=== PATIENT | female | born 1990 | race Caucasian/White ===

== ENCOUNTER 2017-07-24 22:26 | Emergency (ER) | payer BC, OTHER ==
[2017-07-24 22:32] VITALS: BP 115/66; PULSE 90; TEMP 97.5; BMI 17.3
[2017-07-25] MEDS ORDERED: METOCLOPRAMIDE HCL INJECTION 10 MG/2 ML VIAL IVPUSH ONE (01:06)
[2017-07-25] MEDS ORDERED: ACETAMINOPHEN 500 MG TABLET (FP) PO ONE (01:06)
[2017-07-25] MEDS ORDERED: SODIUM CHLORIDE 0.9% 1000 ML INFUS.BAG IV ONE (01:06)
[2017-07-25] MEDS ORDERED: METOCLOPRAMIDE HCL INJECTION 10 MG/2 ML VIAL ONE (01:10)
[2017-07-25] MEDS ORDERED: ACETAMINOPHEN 325 MG TABLET (FP) ONE (01:14)
--- NOTE | 2017-07-25 01:14 | PDOC ---
History of Present Illness - General Chief Complaint: Pain Stated Complaint: CHEST PAIN Time Seen by Provider: 07/24/17 23:37 History Source: Patient Exam Limitations: No Limitations - History of Present Illness Initial Comments: This is a 26 YOF with h/o migraines who presents c/o left-sided headache since 6 pm today. She notes pinching pain, numbness, and tingling to the entire left face radiating to the left scalp and to the left neck which has been constant 10 /10 pain since the onset. She took Advil with little relief. 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 She has never had symptoms like this before and states this feels very different from her normal migraines. She denies any rash, recent cough, recent sore throat, shortness of breath, or other symptoms. Past History - Past Medical History Allergies/Adverse Reactions: Allergies Allergy/AdvReac Type Severity Reaction Status Date / Time No Known Allergies Allergy Verified 07/24/17 22:32 Home Medications: Ambulatory Orders NK [No Known Home Medication] 07/25/17 COPD: No Other medical history: migrains - Suicide/Smoking/Psychosocial Hx Smoking History: Never smoked Hx Alcohol Use: Yes (SOCIAL) Drug/Substance Use Hx: No Substance Use Type: None Review of Systems - Review of Systems Constitutional: No: Chills, Fever, Unexplained wgt Loss HEENTM: No: Nose Congestion, Throat Pain Respiratory: No: Cough, Shortness of Breath Cardiac (ROS): No: Chest Pain, Palpitations ABD/GI: Yes: Vomiting (x1). No: Constipated, Diarrhea : No: Burning, Dysuria Musculoskeletal: No: Back Pain, Neck Pain Integumentary: No: Bruising, Rash Neurological: Yes: Headache, Numbness (left face), Tingling (left face), Dizziness (mild). No: Weakness Endocrine: No: Unexplained Weight Gain, Unexplained Weight Loss *Physical Exam - Vital Signs Last Vital Signs Temp Pulse Resp BP Pulse Ox 97.5 F L 90 18 115/66 99 07/24/17 22:28 07/24/17 22:28 07/24/17 22:28 07/24/17 22:28 07/24/17 22:28 - Physical Exam General Appearance: Yes: Nourished, Appropriately Dressed, Other (well- appearing British-speaking female answering questions appropriately, large vesicular lesion right lip with topical cream). No: Apparent Distress HEENT: positive: EOMI, ALICIA, Normal Voice, TMs Normal, Other (decreased hearing on the left grossly, EACs clear bilaterally). negative: Scleral Icterus (R), Scleral Icterus (L), Muffled/Hoarse voice, Nasal Congestion, TM Bulging, TM Dull , TM Erythema Neck: positive: Trachea midline, Supple. negative: Tender, Rigid Respiratory/Chest: positive: Lungs Clear, Normal Breath Sounds. negative: Respiratory Distress, Crackles, Rhonchi, Stridor, Wheezing Cardiovascular: positive: Regular Rhythm, Regular Rate. negative: Murmur Gastrointestinal/Abdominal: positive: Normal Bowel Sounds, Soft. negative: Tender, Organomegaly, Pulsatile Mass, Guarding Musculoskeletal: positive: Normal Inspection. negative: Decreased Range of Motion, Vertebral Tenderness Extremity: positive: Normal Capillary Refill, Normal Inspection, Normal Range of Motion. negative: Tender, Cyanosis Integumentary: positive: Normal Color, Dry, Warm, Other (vesicular lesion to right lip but otherwise no rash, no lesions, no scabs, no drainage). negative: Erythema, Rash, Bruising Neurologic: positive: service technician copier II-XII NML intact (except subjective decreased sensation entire right face), Fully Oriented, Alert, Normal Mood/Affect, Normal Response, Motor Strength 5/5 Medical Decision Making - Medical Decision Making 26 YOF with h/o migraines p/w left facial pain, numbness, tingling, decr hearing and vision on the left. On exam she has large vesicular lesion to RIGHT lip but otherwise no rash, VS wnl, subj decr sensation left face. DDX IBNLT atypical migraine, early shingles, trigeminal neuralgia, tension headache, ICH, cluster headache, etc. Very unlikely ICH as the patient has no mechanism for injury, no past medical hx other than migraine. No objective focal deficits on exam, gait is normal. Ordered is urine hCG, reglan, Tylenol, IVF. 07/25/17 02:20 Patient states pain has resolved after Tylenol, Reglan, IVF. Urine hCG is negative. The patient wishes to go home and requests work note for tomorrow. Return precautions are discussed and she will take OTC pain/vertigo medications prn. *DC/Admit/Observation/Transfer Diagnosis at time of Disposition: Migraine headache Qualifiers: Migraine type: unspecified Status migrainosus presence: without status migrainosus Intractability: not intractable Qualified Code(s): G43.909 - Migraine, unspecified, not intractable, without status migrainosus - Discharge Dispostion Disposition: HOME - Referrals Referrals: Feli Kramer [Primary Care Provider] - - Patient Instructions Additional Instructions: [place] visto en la tiana emergancia por dolor de terrell. Hicemos un prueba de la orina y no esta embarazado. Se trey unos medicamentos para nausea y el dolor ( Tylenol y Reglan) y tambieno pusimos el miriam, y ahora sánchez dolor es mejor. Por favor tanmay Tylenol y Motrin por el dolor de terrell, y tanmay meclizine por los mareos. Haz katia samuel con sánchez doctor primario muy temprano, o siempre puede regresar a la tiana emergencia por sintomas nuevas o peoras vance fiebre, dolor que no puede controlar con medicamentos, vomitar, o otras sintomas. - Post Discharge Activity Forms/Work/School Notes: Back to Work
--- NOTE | 2017-07-25 02:37 | PDOC ---
Attending Attestation - Resident Resident Name: Yolanda Werner - ED Attending Attestation I have performed the following: I have examined & evaluated the patient, The case was reviewed & discussed with the resident, I agree w/resident's findings & plan, Exceptions are as noted - HPI HPI: 07/25/17 02:31 26 F with h/o migraines presents to ER with 1 day of L sided headache. Pt states that her typical headaches are mid-frontal. This headache was slightly different in that it was mainly on the left side of her head. She denies N/V. Denies neck stiffness. Denies F/C. Denies worst headache of life, denies thunderclap. Pt states that the pain radiates into her L face. In ER, pt received tylenol and reglan with complete resolution of her headache. At time of interview, pt is completely asymptomatic. Denies HARP. Denies N/V. Denies hearing or vision changes. No weakness/numbness/tingling in any extremities. Pt is followed by neurologist and has had MRI in the past that she states was normal. - Physicial Exam PE: 07/25/17 02:37 "GENERAL: Awake, alert, and fully oriented, in no acute distress HEAD: No signs of trauma EYES: PERRLA, EOMI, sclera anicteric, conjunctiva clear ENT: Auricles normal inspection, hearing grossly normal, nares patent, oropharynx clear without exudates. Moist mucosa NECK: Nontender, no stepoffs, Normal ROM, supple, no lymphadenopathy, JVD, or masses LUNGS: Breath sounds equal, clear to auscultation bilaterally. No wheezes, and no crackles HEART: Regular rate and rhythm, normal S1 and S2, no murmurs, rubs or gallops ABDOMEN: Soft, nontender, normoactive bowel sounds. No guarding, no rebound. No masses EXTREMITIES: Normal range of motion, no edema. No clubbing or cyanosis. No cords, erythema, or tenderness NEUROLOGICAL: Cranial nerves II through XII intact. 5/5 strength and sensation in all extremities, Normal speech, normal gait SKIN: Warm, Dry, normal turgor, no rashes or lesions noted. " - Medical Decision Making 07/25/17 02:37 26 F with L sided headache, now resolved s/p tylenol and reglan. Neuro exam completely non-focal. Likely atypical migraine given h/o migraine headaches. - F/u neurology
--- NOTE | 2017-07-29 12:59 | EKG ---
Test Reason : Blood Pressure : / mmHG Vent. Rate : 085 BPM Atrial Rate : 085 BPM P-R Int : 150 ms QRS Dur : 070 ms QT Int : 364 ms P-R-T Axes : 053 064 054 degrees QTc Int : 433 ms NORMAL SINUS RHYTHM NORMAL ECG NO PREVIOUS ECGS AVAILABLE Confirmed by JENNIFER MORRISON MD ([id number]) on 07/29/2017 12:59:27 PM Referred By: Confirmed By:JENNIFER MORRISON MD
== END 2017-07-25 02:41 | disposition home or self-care (01) ==
LOC: JER 22:26
PROC: 3E033GC Introduction of Other Therapeutic Substance into Peripheral Vein, Percutaneous Approach (ICD-10-PCS; principal; 2017-07-24)
DX: G43.909 Migraine, unspecified, not intractable, without status migrainosus (principal)
CPT/HCPCS: 84703; 93005; 93010; 99281-25

== ENCOUNTER 2019-07-05 12:15 | Emergency (ER) | payer OTHER ==
[2019-07-05 12:23] VITALS: BMI 18.7
[2019-07-05] MEDS ORDERED: SODIUM CHLORIDE 1,000 ML IV STA (12:24)
[2019-07-05] MEDS ORDERED: ACETAMINOPHEN 1000 MG/100 ML VIAL (NON FORMULARY) IVPB ONE (12:24)
--- NOTE | 2019-07-05 12:24 | PDOC ---
Rapid Medical Evaluation Time Seen by Provider: 07/05/19 12:18 Medical Evaluation: Allergies Allergy/AdvReac Type Severity Reaction Status Date / Time No Known Allergies Allergy Verified 07/24/17 22:32 07/05/19 12:19 CC: Global HARP 04/08 with photophobia and vomiting- c/w usual migraine pattern. LMP-04/18. . 11wks by dates. +lower abdominal pain. denies vaginal bleeding/ discharge. PE: No neuro findings. Abd benign. Orders: labs, urine Patient will proceed to ER for continued evaluation. 07/05/19 12:23 07/05/19 12:24 Discharge Disposition - Diagnosis Migraine - Referrals - Patient Instructions - Post Discharge Activity
[2019-07-05] MEDS ORDERED: METOCLOPRAMIDE HCL INJECTION 10 MG/2 ML VIAL IVPB ONE (12:47)
--- NOTE | 2019-07-05 12:47 | PDOC ---
History of Present Illness - General Chief Complaint: Pain Stated Complaint: 11WKS/ HEADACHES Time Seen by Provider: 07/05/19 12:18 History Source: Patient Exam Limitations: No Limitations Past History - Travel Traveled outside of the country in the last 30 days: No Close contact w/someone who was outside of country & ill: No - Past Medical History Allergies/Adverse Reactions: Allergies Allergy/AdvReac Type Severity Reaction Status Date / Time No Known Allergies Allergy Verified 07/05/19 12:23 Home Medications: Ambulatory Orders Metoclopramide HCl [Reglan -] 10 mg PO TID PRN #10 tablet 07/05/19 95/Iron Fum/Folic/Dha [ + Dha Combo Pack] 1 each PO DAILY 07/05 COPD: No - Psycho Social/Smoking Cessation Hx Smoking History: Never smoked Have you smoked in the past 12 months: No Information on smoking cessation initiated: No Hx Alcohol Use: No Drug/Substance Use Hx: No Substance Use Type: None Review of Systems - Review of Systems Able to Perform ROS?: Yes Comments:: 07/05/19 15:12 CONSTITUTIONAL: Absent: fever, chills, diaphoresis, generalized weakness, malaise, loss of appetite HEENT: Absent: rhinorrhea, nasal congestion, throat pain, throat swelling, difficulty swallowing, mouth swelling, ear pain, eye pain, visual Changes CARDIOVASCULAR: Absent: chest pain, loss of consciousness, palpitations, irregular heart rate, peripheral edema RESPIRATORY: Absent: cough, shortness of breath, dyspnea with exertion, orthopnea, wheezing, stridor, hemoptysis GASTROINTESTINAL: Absent: abdominal pain, abdominal distension, nausea, vomiting, diarrhea, constipation, melena, hematochezia GENITOURINARY: Absent: dysuria, frequency, urgency, hesitancy, hematuria, flank pain, genital pain MUSCULOSKELETAL: Absent: myalgia, arthralgia, joint swelling SKIN: Absent: rash, itching, pallor HEMATOLOGIC/IMMUNOLOGIC: Absent: easy bleeding, easy bruising, lymphadenopathy, frequent infections ENDOCRINE: Absent: unexplained weight gain, unexplained weight loss, heat intolerance, cold intolerance NEUROLOGIC: Present: Headache Absent: focal weakness or paresthesias, dizziness, unsteady gait, seizure, mental status changes, bladder or bowel incontinence PSYCHIATRIC: Absent: anxiety, depression, suicidal or homicidal ideation, hallucinations. Is the patient limited Kyrgyz proficient: No *Physical Exam - Vital Signs Last Vital Signs Temp Pulse Resp BP Pulse Ox 109 H 18 111/49 L 100 07/05/19 12:21 07/05/19 12:21 07/05/19 12:21 07/05/19 12:21 - Physical Exam Comments: 07/05/19 15:13 GENERAL: Well developed, well nourished. Awake and alert. No acute distress. HEENT: Normocephalic, atraumatic. PERRLA, EOMI. No conjunctival pallor. Sclera are non- icteric. Moist mucous membranes. Oropharynx is clear. NECK: Supple. Full ROM. No JVD. Carotid pulses 2+ and symmetric, without bruits. No thyromegaly. No lymphadenopathy. CARDIOVASCULAR: Regular rate and rhythm. No murmurs, rubs, or gallops. Distal pulses are 2+ and symmetric. PULMONARY: No evidence of respiratory distress. Lungs clear to auscultation bilaterally. No wheezing, rales or rhonchi. ABDOMINAL: Soft. Non-tender. Non-distended. No rebound or guarding. No organomegaly. Normoactive bowel sounds. MUSCULOSKELETAL Normal range of motion at all joints. No bony deformities or tenderness. No CVA tenderness. EXTREMITIES: No cyanosis. No clubbing. No edema. No calf tenderness. SKIN: Warm and dry. Normal capillary refill. No rashes. No jaundice. NEUROLOGICAL: Alert, awake, appropriate. Cranial nerves 2-12 intact. No deficits to light touch and temperature in face, upper extremities and lower extremities. No motor deficits in the in face, upper extremities and lower extremities. Normoreflexic in the upper and lower extremities. Normal speech. Toes are down- going bilaterally. Gait is normal without ataxia. PSYCHIATRIC: Cooperative. Good eye contact. Appropriate mood and affect. ED Treatment Course - LABORATORY CBC & Chemistry Diagram: 07/05/19 12:44 07/05/19 12:44 Medical Decision Making - Medical Decision Making 07/05/19 15:09 The patient is a 28 y/o F with PMH of migraines , 11 weeks , who presents to the ER today for two days of headache. She states she usually gets migraines, but she cannot take her usual medications because she is . She took Tylenol 500 mg at 6 AM this morning without relief of her symptoms. She admits to phonophobia and photophobia. Denies fevers, chills, neck pain, numbness and tingling and weakness to the extremities, dizziness and lightheadedness. A/P: Migraine On exam patient is neurologically intact with no focal findings. Patient states that this headache is within her usual migraine pattern. Lab work is unremarkable, urine is negative for infection at this time. Reglan, Benadryl and IV tylenol given in the ER with relief of symptoms. POCUS shows HR of 155 with positive movement We will discharge home with Reglan as needed for migraines and OB follow-up I discussed the physical exam findings, ancillary test results and final diagnoses with the patient. I answered all of the patient's questions. The patient was satisfied with the care received and felt comfortable with the discharge plan and treatment plan. The Patient agrees to follow up with the primary care physician/specialist within 24-72 hours. Return precautions were given. Discharge - Discharge Information Problems reviewed: Yes Clinical Impression/Diagnosis: Migraine Qualifiers: Migraine type: unspecified Status migrainosus presence: without status migrainosus Intractability: not intractable Qualified Code(s): G43.909 - Migraine, unspecified, not intractable, without status migrainosus Condition: Stable Disposition: HOME - Admission No - Additional Discharge Information Prescriptions: Metoclopramide HCl [Reglan -] 10 mg PO TID PRN #10 tablet PRN Reason: Headache - Follow up/Referral Referrals: Yolette Bowen NP [Primary Care Provider] - - Patient Discharge Instructions Patient Printed Discharge Instructions: DI for Migraine Additional Instructions: You were evaluated for your migraine today. You may take Tylenol 500 mg every 4 hours as needed for headaches. You may take 1 Reglan every 8 hours as needed for your migraine or nausea. Do not take this medication if you feel well. Drink plenty of water and get plenty of rest. 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 Your baby had a heart rate of 155 today. Return to the ER for worsening headache, vomiting, lightheadedness or if you have any changes in your symptoms. Usted fue evaluado por trimble migraa hoy. Puede rafael Tylenol 500 mg cada 4 horas segn sea necesario para los chata de terrell. Puede rafael 1 Reglan cada 8 horas segn sea necesario para trimble migraa o nuseas. No tome mitali medicamento si se siente christiano. Odalys olga agua y descanse mucho. Ravin un seguimiento con trimble obstetra / gineclogo esta semana. Trimble beb anatoly katia frecuencia cardaca de 155 hoy. Regrese a la tiana de emergencias para empeorar el dolor de terrell, los vmitos, el aturdimiento o si tiene algn cambio en kaila sntomas. - Post Discharge Activity Work/Back to School Note: Back to Work
[2019-07-05] MEDS ORDERED: METOCLOPRAMIDE HCL INJECTION 10 MG/2 ML VIAL ONE (12:53)
[2019-07-05] MEDS ORDERED: ACETAMINOPHEN INJECTION 100 ML IVPB ONE (12:53)
[2019-07-05 12:57] LABS: BASO % 0.4 % (0-2.0); EOS % 0.2 % (0-4.5); HEMATOCRIT 37.4 % (32.4-45.2); HEMOGLOBIN 12.8 GM/dL (10.7-15.3); LYMPH % 15.6 % (8-40); MCH 31.3 pg (25.7-33.7); MCHC 34.2 g/dl (32.0-36.0); MEAN CELL VOLUME 91.4 fl (80-96); MEAN PLT VOLUME 9.1 fl (7.5-11.1); MONO % 4.2 % (3.8-10.2); NEUT % 79.6 % (42.8-82.8); PLATELET COUNT 238 K/MM3 (134-434); RBC 4.09 M/mm3 (3.60-5.2); RDW 13.1 % (11.6-15.6); WHITE BLOOD COUNT 8.9 K/mm3 (4.0-10.0)
[2019-07-05 13:25] LABS: EPI CELLS 1.2 /HPF (0-5/HPF); HYALINE CASTS 1 /lpf (0-8); PH,URINE 6.5 (5.0-8.0); URINE APPEARANCE CLEAR; URINE BACTERIA 51.1 /hpf (NEGATIVE); URINE BILIRUBIN NEGATIVE (NEGATIVE); URINE COLOR YELLOW; URINE GLUCOSE (UA) NEGATIVE (NEGATIVE); URINE KETONE TRACE (NEGATIVE); URINE LEUK ESTERASE NEGATIVE (NEGATIVE); URINE NITRITE NEGATIVE (NEGATIVE); URINE PROTEIN NEGATIVE (NEGATIVE); URINE RBC 2 /hpf (0-4); URINE UROBILINOGEN 0.2 mg/dL (0.2-1.0); URINE WBC 1 /hpf (0-5)
[2019-07-05 13:38] LABS: ALBUMIN 3.7 g/dl (3.4-5.0); BILIRUBIN,TOTAL 0.3 mg/dL (0.2-1); BLOOD UREA NITROGEN 7.6 mg/dL (7-18); CALCIUM 9.3 mg/dL (8.5-10.1); CREATININE 0.6 mg/dL (0.55-1.3); POTASSIUM 3.9 mmol/L (3.5-5.1); TOT PROT 7.6 g/dl (6.4-8.2)
[2019-07-05 14:55] VITALS: BP 96/61; PULSE 74; TEMP 98.6
== END 2019-07-05 15:26 | disposition home or self-care (01) ==
LOC: JER 12:15
PROC: 3E033NZ Introduction of Analgesics, Hypnotics, Sedatives into Peripheral Vein, Percutaneous Approach (ICD-10-PCS; principal; 2019-07-05)
PROC: 3E033GC Introduction of Other Therapeutic Substance into Peripheral Vein, Percutaneous Approach (ICD-10-PCS; 2019-07-05)
PROC: 3E033GC Introduction of Other Therapeutic Substance into Peripheral Vein, Percutaneous Approach (ICD-10-PCS; 2019-07-05)
PROC: BY49ZZZ Ultrasonography of First Trimester, Single Fetus (ICD-10-PCS; 2019-07-05)
DX: O26.891 Other specified pregnancy related conditions, first trimester (principal); G43.909 Migraine, unspecified, not intractable, without status migrainosus; Z3A.11 11 weeks gestation of pregnancy
CPT/HCPCS: 36415; 76801-TC; 76815; 80053; 81003; 83690; 84702; 85025; 86850; 86900; 86901; 87086; 96374; 96375; 99282-25; J0131; J7030

== ENCOUNTER 2020-10-07 04:34 | Day surgery (SDC) | payer OTHER ==
[2020-10-04 16:38] VITALS: BMI 21.1
[2020-10-07] MEDS ORDERED: DEXAMETHASONE SOD PHOSPHATE/PF 10 MG/ML SDV ONE (07:33)
[2020-10-07] MEDS ORDERED: PROPOFOL 20 ML ONE (07:43)
[2020-10-07] MEDS ORDERED: SUCCINYLCHOLINE CHLORIDE 200 MG/10 ML SYRINGE ONE (07:49)
[2020-10-07] MEDS ORDERED: MIDAZOLAM HCL 2 MG/2 ML SINGLE DOSE VIAL ONE ×3 (07:49→08:09)
[2020-10-07] MEDS ORDERED: ceFAZolin 2 GRAM PREMIX BAG IVPB ONE (08:31)
[2020-10-07] MEDS ORDERED: ceFAZolin SODIUM 1 GM VIAL ONE (09:14)
[2020-10-07] MEDS ORDERED: ONDANSETRON 4 MG/2 ML VIAL ONE (09:14)
[2020-10-07] MEDS ORDERED: KETOROLAC TROMETHAMINE 30 MG/1 ML VIAL ONE (09:14)
[2020-10-07] MEDS ORDERED: DEXAMETHASONE SOD PHOSPHATE 4 MG/1 ML VIAL ONE (09:14)
[2020-10-07] MEDS ORDERED: ONDANSETRON 4 MG/2 ML VIAL IVPUSH PRN (10:33)
[2020-10-07] MEDS ORDERED: oxyCODONE HCL 5 MG TABLET PO PRN (10:33)
[2020-10-07] MEDS ORDERED: LACTATED RINGERS SOLUTION 1,000 ML IV SCH (10:45)
[2020-10-07 13:26] VITALS: BP 110/60; PULSE 93; TEMP 97.7
== END 2020-10-07 11:55 | disposition home or self-care (01) ==
LOC: JASU-SURG 04:34
PROVIDERS: ATTEND Orthopaedic Surgery
PROC: 0RQJ4ZZ Repair Right Shoulder Joint, Percutaneous Endoscopic Approach (ICD-10-PCS; 2020-10-07)
PROC: 0RNJ4ZZ Release Right Shoulder Joint, Percutaneous Endoscopic Approach (ICD-10-PCS; principal; 2020-10-07 08:45)
DX: M75.41 Impingement syndrome of right shoulder (principal); M24.111 Other articular cartilage disorders, right shoulder
CPT/HCPCS: 88304-TC; 94760

== ENCOUNTER 2022-03-20 18:32 | Emergency (ER) | payer OTHER ==
[2022-03-20 18:42] VITALS: BP 107/55; PULSE 86; RESP 18; TEMP 98; BMI 21.9
[2022-03-20] MEDS ORDERED: ACETAMINOPHEN 500 MG TABLET (FP) PO ONE (20:14)
[2022-03-20 20:59] LABS: BASO % 0.9 % (0-2.0); EOS % 0.9 % (0-4.5); HEMATOCRIT 40.3 % (32.4-45.2); HEMOGLOBIN 13.5 GM/dL (10.7-15.3); LYMPH % 22.2 % (8-40); MCH 30.3 pg (25.7-33.7); MCHC 33.4 g/dl (32.0-36.0); MEAN CELL VOLUME 90.9 fl (80-96); MONO % 5.2 % (3.8-10.2); NEUT % 70.8 % (42.8-82.8); PLATELET COUNT 254 10^3/uL (134-434); RBC 4.43 M/mm3 (3.60-5.2); RDW 13.6 % (11.6-15.6); WHITE BLOOD COUNT 9.5 K/mm3 (4.0-10.0)
[2022-03-20 21:02] LABS: EPI CELLS 34 /uL (0-25.1); HYALINE CASTS 0 /uL (0-3.1); PH,URINE 6.5 (5.0-8.0); URINE APPEARANCE CLEAR; URINE BACTERIA 399 /uL (0-1359); URINE BILIRUBIN NEGATIVE (NEGATIVE); URINE COLOR YELLOW; URINE GLUCOSE (UA) NEGATIVE (NEGATIVE); URINE KETONE NEGATIVE (NEGATIVE); URINE LEUK ESTERASE NEGATIVE (NEGATIVE); URINE NITRITE NEGATIVE (NEGATIVE); URINE PROTEIN NEGATIVE (NEGATIVE); URINE RBC 24 /uL (0-23.9); URINE UROBILINOGEN 0.2 mg/dL (0.2-1.0); URINE WBC 23 /uL (0-25.8)
[2022-03-20 21:03] LABS: HCG,QUALITATIVE URINE Positive
[2022-03-20 21:22] LABS: CALCIUM 9.3 mg/dL (8.5-10.1)
[2022-03-20 21:23] LABS: ALBUMIN 4.3 g/dl (3.4-5.0); BLOOD UREA NITROGEN 11.3 mg/dL (7-18)
[2022-03-20 21:26] LABS: CREATININE 0.7 mg/dL (0.55-1.3)
[2022-03-20 21:27] LABS: BILIRUBIN,TOTAL 0.3 mg/dL (0.2-1); TOT PROT 8.1 g/dl (6.4-8.2)
[2022-03-20] MEDS ORDERED: CEPHALEXIN MONOHYDRATE 500 MG CAPSULE (UD) PO ONE (22:28)
[2022-03-20] MEDS ORDERED: CEPHALEXIN MONOHYDRATE 500 MG CAPSULE (UD) ONE (22:33)
== END 2022-03-21 00:09 | disposition home or self-care (01) ==
LOC: JER 18:32
DX: O23.41 Unspecified infection of urinary tract in pregnancy, first trimester (principal); N39.0 Urinary tract infection, site not specified; Z3A.01 Less than 8 weeks gestation of pregnancy
CPT/HCPCS: 36415; 76817-TC; 80053; 81003; 83690; 84702; 84703; 85025; 86850; 86900; 86901; 87077; 87086; 99284-25

== ENCOUNTER 2022-03-21 13:14 | Emergency (ER) | payer OTHER ==
[2022-03-21 13:33] VITALS: BP 94/57; PULSE 74; RESP 17; TEMP 98.4; BMI 20.5
[2022-03-21] MEDS ORDERED: ACETAMINOPHEN 500 MG TABLET (FP) PO ONE (14:12)
[2022-03-21 14:43] LABS: BASO % 0.9 % (0-2.0); EOS % 0.5 % (0-4.5); HEMATOCRIT 39.6 % (32.4-45.2); HEMOGLOBIN 12.9 GM/dL (10.7-15.3); LYMPH % 19.7 % (8-40); MCH 29.9 pg (25.7-33.7); MCHC 32.7 g/dl (32.0-36.0); MEAN CELL VOLUME 91.4 fl (80-96); MEAN PLT VOLUME 9.4 fl (7.5-11.1); MONO % 5.2 % (3.8-10.2); NEUT % 73.7 % (42.8-82.8); PLATELET COUNT 253 10^3/uL (134-434); RBC 4.33 M/mm3 (3.60-5.2); RDW 13.5 % (11.6-15.6); WHITE BLOOD COUNT 8.7 K/mm3 (4.0-10.0)
[2022-03-21 14:58] LABS: CALCIUM 9.5 mg/dL (8.5-10.1)
[2022-03-21 14:59] LABS: ALBUMIN 4.3 g/dl (3.4-5.0); BLOOD UREA NITROGEN 7.5 mg/dL (7-18)
[2022-03-21 15:02] LABS: CREATININE 0.6 mg/dL (0.55-1.3)
[2022-03-21 15:04] LABS: BILIRUBIN,TOTAL 0.5 mg/dL (0.2-1); TOT PROT 8.1 g/dl (6.4-8.2)
== END 2022-03-21 15:23 | disposition home or self-care (01) ==
LOC: JER 13:14
DX: N93.9 Abnormal uterine and vaginal bleeding, unspecified (principal)
CPT/HCPCS: 36415; 80053; 84702; 85025; 99284-25

== ENCOUNTER 2022-03-23 15:08 | Emergency (ER) | payer OTHER ==
[2022-03-23 15:52] VITALS: BP 100/62; PULSE 83; RESP 16; TEMP 98.8; BMI 21.9
[2022-03-23] MEDS ORDERED: RHO(D) IMMUNE GLOBULIN 1,500 UNIT DISP.SYRIN IM ONE (19:18)
[2022-03-23 20:26] LABS: ALBUMIN 4.3 g/dl (3.4-5.0); BLOOD UREA NITROGEN 8.2 mg/dL (7-18)
[2022-03-23 20:28] LABS: CREATININE 0.6 mg/dL (0.55-1.3)
[2022-03-23 20:30] LABS: TOT PROT 8.1 g/dl (6.4-8.2)
[2022-03-23 20:31] LABS: BILIRUBIN,TOTAL 0.2 mg/dL (0.2-1)
== END 2022-03-23 21:29 | disposition home or self-care (01) ==
LOC: JER 15:08
PROC: 3E0234Z Introduction of Serum, Toxoid and Vaccine into Muscle, Percutaneous Approach (ICD-10-PCS; principal; 2022-03-23)
DX: O03.9 Complete or unspecified spontaneous abortion without complication (principal)
CPT/HCPCS: 36415; 76817-TC; 80053; 84702; 86850; 86900; 86901; 86999; 99284-25; J1561

== ENCOUNTER 2023-03-31 20:48 | Emergency (ER) | payer OTHER ==
[2023-03-31 21:04] VITALS: TEMP 98.1; BMI 23.8
[2023-03-31] MEDS ORDERED: FAMOTIDINE 20 MG/50 ML IVPB 20 MG/50 ML MG IVPB ONE ×2 (21:40→21:47)
[2023-03-31] MEDS ORDERED: ONDANSETRON 4 MG/2 ML VIAL IVPUSH ONE (21:40)
[2023-03-31] MEDS ORDERED: SODIUM CHLORIDE 0.9% 500 ML INFUS.BAG IV ONE (21:40)
[2023-03-31] MEDS ORDERED: ONDANSETRON 4 MG/2 ML VIAL ONE (21:47)
[2023-03-31 21:59] LABS: BASO % 0.4 % (0-2.0); EOS % 0.6 % (0-4.5); HEMATOCRIT 36.9 % (32.4-45.2); LYMPH % 22.6 % (8-40); MCH 30.1 pg (25.7-33.7); MCHC 32.7 g/dl (32.0-36.0); MEAN CELL VOLUME 92.3 fl (80-96); MEAN PLT VOLUME 9.2 fl (7.5-11.1); MONO % 6.1 % (3.8-10.2); NEUT % 70.3 % (42.8-82.8); PLATELET COUNT 233 10^3/uL (134-434); RDW 13.9 % (11.6-15.6); WHITE BLOOD COUNT 12.6 K/mm3 (4.0-10.0)
[2023-03-31 22:01] LABS: PH,URINE 7.5 (5.0-8.0); URINE APPEARANCE CLEAR; URINE BILIRUBIN NEGATIVE (NEGATIVE); URINE COLOR YELLOW; URINE GLUCOSE (UA) NEGATIVE (NEGATIVE); URINE KETONE NEGATIVE (NEGATIVE); URINE LEUK ESTERASE NEGATIVE (NEGATIVE); URINE NITRITE NEGATIVE (NEGATIVE); URINE PROTEIN NEGATIVE (NEGATIVE); URINE UROBILINOGEN 0.2 mg/dL (0.2-1.0)
[2023-03-31 22:02] LABS: HCG,QUALITATIVE URINE Positive
[2023-03-31 23:31] LABS: POTASSIUM 3.9 mmol/L (3.5-5.1)
[2023-03-31 23:33] LABS: CALCIUM 8.9 mg/dL (8.5-10.1)
[2023-03-31 23:34] LABS: ALBUMIN 3.9 g/dl (3.4-5.0); BLOOD UREA NITROGEN 6.7 mg/dL (7-18)
[2023-03-31 23:37] LABS: CREATININE 0.7 mg/dL (0.55-1.3)
[2023-03-31 23:39] LABS: BILIRUBIN,TOTAL 0.2 mg/dL (0.2-1); TOT PROT 7.5 g/dl (6.4-8.2)
[2023-04-01 00:45] VITALS: BP 98/54; PULSE 74; RESP 16
== END 2023-04-01 02:06 | disposition home or self-care (01) ==
LOC: JER 20:48 → JERFT 20:48 → JER 04-01 02:06
PROC: 3E033GC Introduction of Other Therapeutic Substance into Peripheral Vein, Percutaneous Approach (ICD-10-PCS; principal; 2023-03-31)
PROC: 3E033GC Introduction of Other Therapeutic Substance into Peripheral Vein, Percutaneous Approach (ICD-10-PCS; 2023-03-31)
DX: O21.0 Mild hyperemesis gravidarum (principal); Z3A.01 Less than 8 weeks gestation of pregnancy
CPT/HCPCS: 36415; 76817-TC; 80053; 81003; 84702; 84703; 85025; 99284-25

== ENCOUNTER 2024-10-20 19:56 | Emergency (ER) | payer OTHER ==
[2024-10-20 20:02] VITALS: BP 106/64; PULSE 92; RESP 17; TEMP 98.3; BMI 21.9
[2024-10-20] MEDS ORDERED: ACETAMINOPHEN INJECTION 100 ML ONE (20:36)
[2024-10-20] MEDS ORDERED: FAMOTIDINE 20 MG/50 ML IVPB 20 MG/50 ML MG IVPB ONE (20:36)
[2024-10-20] MEDS ORDERED: ONDANSETRON 4 MG/2 ML VIAL ONE (20:36)
[2024-10-20 20:44] LABS: BASO % 0.3 % (0-2.0); EOS % 0.6 % (0-4.5); HEMATOCRIT 43.3 % (32.4-45.2); HEMOGLOBIN 14.5 GM/dL (10.7-15.3); LYMPH % 6.5 % (8-40); MCH 30.2 pg (25.7-33.7); MCHC 33.5 g/dl (32.0-36.0); MEAN CELL VOLUME 90.1 fl (80-96); MEAN PLT VOLUME 9.1 fl (7.5-11.1); MONO % 5.1 % (3.8-10.2); NEUT % 87.5 % (42.8-82.8); PLATELET COUNT 219 10^3/uL (134-434); RDW 13.9 % (11.6-15.6); WHITE BLOOD COUNT 9.4 K/mm3 (4.0-10.0)
[2024-10-20] MEDS: FAMOTIDINE 20 MG/50 ML IVPB 20 MG/50 ML MG IVPB ONE (20:47)
[2024-10-20] MEDS: ACETAMINOPHEN 1000 MG/100 ML BAG IVPB ONE (20:47)
[2024-10-20] MEDS: SODIUM CHLORIDE 1,000 ML IV STA (20:47)
[2024-10-20] MEDS: ONDANSETRON 4 MG/2 ML VIAL IVPUSH ONE (20:47)
[2024-10-20 21:09] LABS: POTASSIUM 4.2 mmol/L (3.5-5.1)
[2024-10-20 21:11] LABS: CALCIUM 9.6 mg/dL (8.5-10.1)
[2024-10-20 21:12] LABS: ALBUMIN 4.6 g/dl (3.4-5.0); BLOOD UREA NITROGEN 9.3 mg/dL (7-18)
[2024-10-20 21:15] LABS: CREATININE 0.7 mg/dL (0.55-1.3)
[2024-10-20 21:16] LABS: BILIRUBIN,TOTAL 0.8 mg/dL (0.2-1); TOT PROT 8.5 g/dl (6.4-8.2)
[2024-10-20 22:06] LABS: URINE APPEARANCE CLEAR; URINE BILIRUBIN NEGATIVE (NEGATIVE); URINE COLOR YELLOW; URINE GLUCOSE (UA) NEGATIVE (NEGATIVE); URINE KETONE NEGATIVE (NEGATIVE); URINE LEUK ESTERASE NEGATIVE (NEGATIVE); URINE NITRITE NEGATIVE (NEGATIVE); URINE PROTEIN NEGATIVE (NEGATIVE); URINE UROBILINOGEN 0.2 mg/dL (0.2-1.0)
[2024-10-20 22:09] LABS: EPI CELLS 3.8 /uL (0-25.1); HYALINE CASTS 0.13 /uL (0-3.1); URINE RBC 9.8 /uL (0-23.9)
== END 2024-10-20 22:53 | disposition home or self-care (01) ==
LOC: JER 19:56
PROC: 3E033GC Introduction of Other Therapeutic Substance into Peripheral Vein, Percutaneous Approach (ICD-10-PCS; principal; 2024-10-20)
PROC: 3E033NZ Introduction of Analgesics, Hypnotics, Sedatives into Peripheral Vein, Percutaneous Approach (ICD-10-PCS; 2024-10-20)
PROC: 3E033GC Introduction of Other Therapeutic Substance into Peripheral Vein, Percutaneous Approach (ICD-10-PCS; 2024-10-20)
PROC: 3E0337Z Introduction of Electrolytic and Water Balance Substance into Peripheral Vein, Percutaneous Approach (ICD-10-PCS; 2024-10-20)
DX: R10.84 Generalized abdominal pain (principal); R11.2 Nausea with vomiting, unspecified; R19.7 Diarrhea, unspecified; R05.9 Cough, unspecified; R09.81 Nasal congestion; R51.9 Headache, unspecified; M54.50 Low back pain, unspecified; R00.0 Tachycardia, unspecified; Z20.822 Contact with and (suspected) exposure to COVID-19
CPT/HCPCS: 0241U-QW; 36415; 80053; 81003; 83690; 84703; 85025; 87086; 99284-25; J0131